=== PATIENT | male | born 2000 ===

== ENCOUNTER 2023-09-13 14:39 | Emergency (ER) | payer SELFPAY ==
[2023-09-13 14:47] VITALS: BP 123/78; PULSE 69; RESP 18; TEMP 98.2; BMI 22.8
[2023-09-13] MEDS ORDERED: BACITRACIN 0.9 GM PACKET TP ONE (15:20)
[2023-09-13] MEDS ORDERED: BACITRACIN ZINC 15 GM TUBE TOPICAL OINTMENT ONE (15:21)
== END 2023-09-13 16:00 | disposition home or self-care (01) ==
LOC: JERFT 14:39